=== PATIENT | female | born 1990 | race Asian ===

== ENCOUNTER 2019-02-03 05:44 | Inpatient (IN) | payer OTHER, SELFPAY ==
[2019-02-03 06:19] VITALS: BMI 27.9
[2019-02-03] MEDS ORDERED: NS w/ Oxytocin 10 units 500 ML ONE (07:52)
[2019-02-03] MEDS: NS w/ Oxytocin 10 units 500 ML IV SCH (08:27)
[2019-02-03] MEDS: Lactated Ringer's 1,000 ML IV SCH ×3 (08:27→23:40)
[2019-02-03] MEDS ORDERED: Ibuprofen 800 MG TAB PO PRN (08:30)
[2019-02-03] MEDS ORDERED: HYDROcodone/Acetaminophen 5/325 mg Tablet PO PRN ×3 (08:30→22:00)
[2019-02-03] MEDS ORDERED: Misoprostol 200 MCG TAB RC PRN (08:30)
[2019-02-03] MEDS ORDERED: NS / Oxytocin 40 units/1000ml 1,000 ML IV SCH ×2 (08:30→19:30)
[2019-02-03] MEDS ORDERED: NS w/ Oxytocin 10 units 500 ML IV SCH (08:30)
[2019-02-03] MEDS ORDERED: Lidocaine 1% (PF) 30 ML VIAL SC PRN (08:30)
[2019-02-03 08:37] LABS: Hemoglobin 12.1 g/dL (12.0-16.0); Mean Corpuscular HGB CONC 34.3 g/dL (32.0-36.0); Mean Corpuscular Hemoglobin 32.5 pg (27.0-31.0); Mean Corpuscular Volume 94.7 fL (78.0-98.0); Mean Platelet Volume 7.4 fL (7.4-10.4); Platelet Count 210 thou/uL (130-400); Red Blood Cell (RBC) Count 3.72 mill/uL (4.20-5.40)
[2019-02-03 09:12] LABS: HBSAg Index 0.24 S/CO (0-0.99); Hep B Surf Ag Non-Reactive S/CO (NonReactive); Syphilis Antibody Nonreactive (Nonreactive); Syphilis Antibody Index 0.02 S/CO (<1.00 Non-Reactive)
[2019-02-03] MEDS ORDERED: Lidocaine 1.5%/Epinephrine 1:200,000 5 ML AMPUL IJ ONE (12:23)
[2019-02-03] MEDS ORDERED: Fentanyl 4 mcg/Bup 0.1% Cadd 100 ML ONE (12:24)
[2019-02-03] MEDS ORDERED: diphenhydrAMINE 50 MG/ML VIAL IVP PRN (13:03)
[2019-02-03] MEDS ORDERED: Promethazine HCl 25 MG/ML VIAL IM PRN (13:03)
[2019-02-03] MEDS ORDERED: Naloxone HCl 0.4 mg/ml Vial IVP PRN ×2 (13:03)
[2019-02-03] MEDS ORDERED: Lactated Ringer's 500 ML IV PRN (13:03)
[2019-02-03] MEDS ORDERED: Acetaminophen 325 MG TAB PO PRN (13:03)
[2019-02-03] MEDS ORDERED: Ondansetron PF 4 MG/2 ML Vial IVP PRN ×2 (13:03→19:26)
[2019-02-03] MEDS ORDERED: ePHEDrine/0.9% NaCl/PF SYRINGE 50 mg/10 ml SLOW IVP PRN (13:03)
[2019-02-03] MEDS ORDERED: Communication Order-Pharmacy FS SCH (13:15)
[2019-02-03] MEDS ORDERED: Fentanyl 4 mcg/Bupivacaine 0.1% Cassette 100 ML EPIDURAL SCH (13:15)
[2019-02-03] MEDS ORDERED: Lidocaine 1% (PF) 30 ML VIAL ONE (17:00)
[2019-02-03] MEDS ORDERED: hydrALAZINE 20 MG/ML VIAL SLOW IVP PRN (19:26)
[2019-02-03] MEDS ORDERED: Benzocaine-Menthol 82.5 ML CAN TOP PRN (19:26)
[2019-02-03] MEDS ORDERED: Adacel (T-DAP) 0.5 ML SYRINGE IM ONE (19:26)
[2019-02-03] MEDS ORDERED: Milk Of Magnesia 30 ML UDCUP PO PRN (19:26)
[2019-02-03] MEDS ORDERED: Lanolin Ointment 7 GM TUBE TOP PRN (19:26)
[2019-02-03] MEDS ORDERED: Bisacodyl 10 MG SUPP PR PRN (19:26)
[2019-02-03] MEDS: Docusate Calcium (SURFAK) 240 MG CAP PO SCH (22:07)
[2019-02-03] MEDS: Ibuprofen 800 MG TAB PO SCH (22:07)
[2019-02-04] MEDS: Ibuprofen 800 MG TAB PO SCH ×3 (06:04→20:42)
[2019-02-04] MEDS: Lactated Ringer's 1,000 ML IV SCH ×2 (07:35→17:59)
[2019-02-04] MEDS: NS w/ Oxytocin 10 units 500 ML IV SCH (07:35)
[2019-02-04] MEDS: Ferrous Sulfate 325 MG TAB PO SCH ×2 (07:38→18:33)
[2019-02-04] MEDS: Docusate Calcium (SURFAK) 240 MG CAP PO SCH ×2 (08:25→20:42)
[2019-02-04] MEDS: Prenatal Vitamin 1 TAB PO SCH (08:25)
--- NOTE | 2019-02-04 10:12 | DN ---
DATE OF PROCEDURE: 02/03/2019 PREOPERATIVE DIAGNOSES: 1. A 28-year-old G1 at 39 weeks and 1 day with an induction of labor by Pitocin. 2. Group B Streptococcus negative. 3. Rubella nonimmune. POST-DELIVERY DIAGNOSES: 1. A 28-year-old G1 at 39 weeks and 1 day with an induction of labor by Pitocin. 2. Group B Streptococcus negative. 3. Rubella nonimmune. 4. Spontaneous vaginal delivery. 5. Live-born female weighing 7 pounds 6 ounces with Apgars of 9 and 9 at 1 and 5 minutes respectively. PROCEDURE PERFORMED: Spontaneous vaginal delivery. ANESTHESIA: Epidural. ESTIMATED BLOOD LOSS: 150 mL. Quantitative blood loss was 212 mL. CLINICAL HISTORY: This patient is a 28-year-old G1, who had an uneventful course from the first trimester to the third. She was noted to be rubella nonimmune, but otherwise had an unremarkable progression. She was offered an induction of labor by Pitocin for a term favorable cervix. When the patient was admitted, she was 1 to 2 cm, 80% effaced, -2, mid position, and soft. She was started on Pitocin and had a category 1 tracing. She continued to progress and requested an epidural for maternal analgesia. Once an amniotomy was performed prior to the epidural with clear fluid, the patient progressed rapidly on the labor curve, and by mid afternoon, she was anterior lip and +1 station. The patient was allowed to labor down to reduce the slip and then she began pushing. DESCRIPTION OF PROCEDURE: With good maternal effort, the patient was able to push the vertex to . The head was delivered, followed by the anterior shoulder, followed by the posterior shoulder and then the remainder of the 's body. The cried spontaneously. She was vigorous at delivery. The cord was doubly clamped, and then, cut by the father and the infant was placed on the maternal abdomen for continued stimulation and assessment. The cord blood was obtained, then the placenta was delivered spontaneously intact with a 3-vessel cord and was discarded. Exploration of the vagina introitus and cervix noted a midline laceration that was a second-degree was repaired in the usual fashion with excellent hemostasis afterwards. The patient was allowed to recover and was expressed and noted for the uterus to be firm. The patient recovered in her Labor and delivery room with her infant. Again, the infant was a live born female weighing 7 pounds 6 ounces with Apgars of 9 and 9 at 1 and 5 minutes respectively. There were no other issues surrounding her delivery. Job ID: [id number]
[2019-02-05] MEDS: Ibuprofen 800 MG TAB PO SCH ×2 (05:47→13:43)
[2019-02-05] MEDS: Lactated Ringer's 1,000 ML IV SCH ×2 (06:34→09:48)
[2019-02-05] MEDS: Ferrous Sulfate 325 MG TAB PO SCH (08:15)
[2019-02-05] MEDS: Docusate Calcium (SURFAK) 240 MG CAP PO SCH (08:31)
[2019-02-05] MEDS: Prenatal Vitamin 1 TAB PO SCH (08:31)
[2019-02-05 08:42] VITALS: BP 108/55; TEMP 98.2
[2019-02-05] MEDS: NS w/ Oxytocin 10 units 500 ML IV SCH (09:48)
[2019-02-05] MEDS ORDERED: Measles/Mumps/Rubella 10 MCG/0.5 ML VIAL SC ONE (12:30)
== END 2019-02-05 13:40 | disposition home or self-care (01) | DRG 807 ==
LOC: L&D 05:44 → 3SE 20:54 → EDSTATUS 02-10 14:56
PROVIDERS: ADMIT Obstetrics & Gynecology; ATTEND Obstetrics & Gynecology
PROC: 10E0XZZ Delivery of Products of Conception, External Approach (ICD-10-PCS; principal; 2019-02-03)
PROC: 0KQM0ZZ Repair Perineum Muscle, Open Approach (ICD-10-PCS; 2019-02-03)
PROC: 3E033VJ Introduction of Other Hormone into Peripheral Vein, Percutaneous Approach (ICD-10-PCS; 2019-02-03)
PROC: 3E0234Z Introduction of Serum, Toxoid and Vaccine into Muscle, Percutaneous Approach (ICD-10-PCS; 2019-02-03)
DX: O70.1 Second degree perineal laceration during delivery (principal); Z37.0 Single live birth; Z3A.39 39 weeks gestation of pregnancy; Z23 Encounter for immunization
CPT/HCPCS: 36415; 51702; 85027; 86762; 86780; 86850; 86900; 86901; 87340; 90707; 90715; J2001; J2590; J3490